=== PATIENT | male | born 1980 | race Caucasian/White ===

== ENCOUNTER 2018-04-26 00:44 | Emergency (ER) | payer OTHER ==
--- NOTE | 2018-04-26 00:48 | ER Report ---
History and Physical Time Seen By MD: 00:47 HPI/ROS CHIEF COMPLAINT: Tachycardia, dizziness HISTORY OF PRESENT ILLNESS: 37 year-old male presents ambulatory to the ER complaining of difficulty breathing, dizziness and chest tightness. He notes sudden onset several hours ago. She denies recent illness. Patient denies leg swelling or calf pain. Patient had a near syncopal episode with exertion today. He notes no chest pain. He notes mild shortness of breath. He does note some chest tightness, though REVIEW OF SYSTEMS: Respiratory: As above Cardiovascular: As above Gastrointestinal: No vomiting, no abdominal pain. Musculoskeletal: No back pain. Allergies: Coded Allergies: No Known Drug Allergies (Unverified , 04/26/18) Home Meds No Active Prescriptions or Reported Meds Reviewed Nurses Notes: Yes Old Medical Records Reviewed: Yes Constitutional Vital Sign - Last 24 Hours 04/26/18 04/26/18 04/26/18 04/26/18 00:51 01:05 01:15 01:20 Temp 98.1 Pulse 147 70 87 Resp 17 8 6 B/P (MAP) 138/100 146/110 (122) 131/97 (108) Pulse Ox 88 91 91 O2 Delivery Room Air 04/26/18 04/26/18 04/26/18 04/26/18 01:30 01:35 01:50 02:00 Pulse 102 111 Resp 26 B/P (MAP) 152/107 (122) 145/101 (116) Pulse Ox 95 04/26/18 04/26/18 04/26/18 04/26/18 02:05 02:15 02:20 02:50 Pulse 106 110 109 Resp 20 20 11 B/P (MAP) 155/107 (123) Pulse Ox 88 92 99 04/26/18 04/26/18 04/26/18 04/26/18 02:52 02:55 02:56 03:00 Pulse 94 92 Resp 19 13 B/P (MAP) 137/70 (92) 137/90 (106) 133/72 (92) Pulse Ox 96 94 04/26/18 04/26/18 04/26/18 03:05 03:10 03:49 Pulse 92 86 85 Resp 17 22 16 B/P (MAP) 132/85 (101) Pulse Ox 94 95 95 O2 Delivery Room Air Physical Exam General Appearance: The patient is alert, has no immediate need for airway protection and no current signs of toxicity. Tachycardia, rate 147 HEENT: Pupils equal and round no injection. Oropharynx without redness or exudate, mucous members are moist Respiratory: Chest is non tender, lungs are clear to auscultation. Cardiac: Irregular rate and rhythm, no murmur Gastrointestinal: Abdomen is soft and non tender, no masses, bowel sounds normal. Musculoskeletal: Neck: Neck is supple and non tender. No JVD Extremities have full range of motion and are non tender. No edema, no calf tenderness Skin: No rashes or lesions. DIFFERENTIAL DIAGNOSIS: After history and physical exam differential diagnosis was considered for chest pain including but not limited to myocardial ischemia, pericarditis pulmonary embolus, chest wall pain, pleural inflammation, dysrhythmia, and pulmonary infectious causes. Medical Decision Making Data Points Result Diagram: 04/26/1810804/26/18108 Laboratory Hematology Test 04/26/18 01:09 Red Blood Count 5.60 M/uL (4.00-5.60) Mean Corpuscular Volume 87.7 fL (80.0-96.0) Mean Corpuscular Hemoglobin 30.8 pg (26.0-33.0) Mean Corpuscular Hemoglobin Concent 35.1 g/dL (32.0-36.0) Red Cell Distribution Width 13.8 % (11.5-14.5) Mean Platelet Volume 8.7 fL (7.2-11.1) Neutrophils (%) (Auto) 71.8 % (39.4-72.5) Lymphocytes (%) (Auto) 19.5 % (17.6-49.6) Monocytes (%) (Auto) 6.3 % (4.1-12.4) Eosinophils (%) (Auto) 1.5 % (0.4-6.7) Basophils (%) (Auto) 0.9 % (0.3-1.4) Nucleated RBC Relative Count (auto) 0.1 /100WBC Neutrophils # (Auto) 6.7 K/uL (2.0-7.4) Lymphocytes # (Auto) 1.8 K/uL (1.3-3.6) Monocytes # (Auto) 0.6 K/uL (0.3-1.0) Eosinophils # (Auto) 0.1 K/uL (0.0-0.5) Basophils # (Auto) 0.1 K/uL (0.0-0.1) Nucleated RBC Absolute Count (auto) 0.01 K/uL Sodium Level 144 mmol/L (137-145) Potassium Level 4.2 mmol/L (3.5-5.0) Chloride Level 101 mmol/L (98-107) Carbon Dioxide Level 29 mmol/L (22-30) Blood Urea Nitrogen 11 mg/dl (9-21) Creatinine 0.90 mg/dl (0.66-1.25) Glomerular Filtration Rate Calc > 60.0 Random Glucose 98 mg/dl (75-110) Calcium Level 9.5 mg/dl (8.4-10.2) Total Bilirubin 0.6 mg/dl (0.2-1.3) Aspartate Amino Transf (AST/SGOT) 23 U/L (0-35) Alanine Aminotransferase (ALT/SGPT) 33 U/L (0-56) Alkaline Phosphatase 54 U/L (0-126) Troponin I 0.014 ng/ml Total Protein 8.1 g/dl (6.3-8.2) Albumin 4.9 g/dl (3.5-5.0) Chemistry Test 04/26/18 01:09 White Blood Count 9.4 k/uL (4.5-11.0) Red Blood Count 5.60 M/uL (4.00-5.60) Hemoglobin 17.2 g/dL (14.0-18.0) Hematocrit 49.1 % (42.0-52.0) Mean Corpuscular Volume 87.7 fL (80.0-96.0) Mean Corpuscular Hemoglobin 30.8 pg (26.0-33.0) Mean Corpuscular Hemoglobin Concent 35.1 g/dL (32.0-36.0) Red Cell Distribution Width 13.8 % (11.5-14.5) Platelet Count 287 K/uL (150-450) Mean Platelet Volume 8.7 fL (7.2-11.1) Neutrophils (%) (Auto) 71.8 % (39.4-72.5) Lymphocytes (%) (Auto) 19.5 % (17.6-49.6) Monocytes (%) (Auto) 6.3 % (4.1-12.4) Eosinophils (%) (Auto) 1.5 % (0.4-6.7) Basophils (%) (Auto) 0.9 % (0.3-1.4) Nucleated RBC Relative Count (auto) 0.1 /100WBC Neutrophils # (Auto) 6.7 K/uL (2.0-7.4) Lymphocytes # (Auto) 1.8 K/uL (1.3-3.6) Monocytes # (Auto) 0.6 K/uL (0.3-1.0) Eosinophils # (Auto) 0.1 K/uL (0.0-0.5) Basophils # (Auto) 0.1 K/uL (0.0-0.1) Nucleated RBC Absolute Count (auto) 0.01 K/uL Glomerular Filtration Rate Calc > 60.0 Calcium Level 9.5 mg/dl (8.4-10.2) Total Bilirubin 0.6 mg/dl (0.2-1.3) Aspartate Amino Transf (AST/SGOT) 23 U/L (0-35) Alanine Aminotransferase (ALT/SGPT) 33 U/L (0-56) Alkaline Phosphatase 54 U/L (0-126) Troponin I 0.014 ng/ml Total Protein 8.1 g/dl (6.3-8.2) Albumin 4.9 g/dl (3.5-5.0) EKG/Imaging EKG Interpretation 12 lead EK Rhythm: Atrial fibrillation rate 147 bpm [place]: normal QRS: normal ST segments: normal, no evidence of ischemia or dysrhythmia 12 lead EK Rhythm: normal sinus rhythm [place]: normal QRS: normal ST segments: normal, no evidence of ischemia or dysrhythmia ED Course/Re-evaluation Clinical Indication for ER IV: Hydration, IV Access ED Course Patient was admitted to an examination room. H&P was done. The dental diagnoses was considered. Patient's diagnostic EKG shows rapid narrow complex tachycardia consistent with atrial fibrillation. Peripheral IV was established. Patient's rate was controlled with diltiazem 20 g IV. Patient continued to remain in A. fib. He's only been within a few hours. I discussed the option of elective electrocardioversion. Patient understands the risks and benefits and agrees to proceed. Procedure: Procedural sedation. A pre-sedation evaluation was completed on the patient. Patient is an appropriate candidate for elective electrocardioversion. The risks of the sedation were discussed with the patient. A time out was completed. The patient was reevaluated immediately prior to initiation of sedation. The patient was sedated with propofol 150 mg IV. The patient was monitored with continuous pulse oximetry and tower climber. There were no complications and no significant hypoxemia. I remained at the bedside for the sedation. The total time I spent in the procedural sedation was 20 minutes. Post sedation eval uation: Patient was alert and cooperative, hemodynamically stable with appropriate respiratory status, temperature and pain control without ongoing nausea and vomiting. Procedure: Elective electrical cardioversion. The patient was electively electrically cardioverted for atrial flutter. The pa tient was on a continuous integration assistant, with airway equipment at the bedside. The patient was on continuous pulse oximetry. The cardioversion was attempted with 50 joules biphasic current. The cardioversion was successful. The patient tolerated the procedure well with no complications. The procedure was performed by myself. Decision to Disposition Date: Apr 26, 2018 Decision to Disposition Time: 03:05 Depart Departure Latest Vital Signs Vital Signs Date Time Temp Pulse Resp B/P (MAP) Pulse Ox O2 Delivery O2 Flow Rate FiO2 04/26/18 03:49 85 16 132/85 (101) 95 Room Air 04/26/18 00:51 98.1 Impression: Primary Impression: New onset atrial fibrillation Additional Impression: Atrial fibrillation status post cardioversion Condition: Improved Disposition: HOME OR SELF-CARE New Scripts No Active Prescriptions or Reported Meds Patient Instructions: A-fib (Atrial Fibrillation) (ED) Additional Instructions: Follow-up with cardiology next week. [email or web address] [address], [place] Problem Qualifiers JOSH MOJICA DO Apr 26, 2018 00:48
[2018-04-26] MEDS ORDERED: ASPIRIN 81 MG CHEW PO ONE (01:00)
[2018-04-26] MEDS ORDERED: ADENOSINE(*)IV SOLN 3MG/ML IVP ONE (01:00)
[2018-04-26] MEDS ORDERED: DILTIAZEM 5 MG/ML 5ML IVPUSH IVP ONE (01:05)
[2018-04-26] MEDS ORDERED: NS(*) 0.9% 1000 ML BAG 1,000 ML IV ONE (01:05)
--- NOTE | 2018-04-26 01:20 | EKG ---
FACILITY: [facility] [place] PATIENT NAME: CESAR BUCHANAN : [id number] MR: [id number] V: [id number] EXAM DATE: ORDERING PHYSICIAN: JOSH MOJICA TECHNOLOGIST: KILLIAN Claire Reason : Blood Pressure : / mmHG Vent. Rate : 147 BPM Atrial Rate : 147 BPM P-R Int : 000 ms QRS Dur : 082 ms QT Int : 268 ms P-R-T Axes : 000 053 015 degrees QTc Int : 419 ms Atrial fibrillation with rapid ventricular response Abnormal ECG No previous ECGs available Confirmed by PIO REES ([id number]) on 04/26/2018 6:28:56 AM Referred By: Confirmed By:PIO REES
[2018-04-26 01:25] LABS: PLATELET COUNT, AUTOMATED 287 K/uL (150-450)
[2018-04-26] MEDS ORDERED: PROPOFOL EMUL 10MG/ML 20 ML VL IV ONE (02:05)
--- NOTE | 2018-04-26 03:27 | EKG ---
FACILITY: [facility] PATIENT NAME: CESAR BUCHANAN : [id number] MR: [id number] V: [id number] EXAM DATE: ORDERING PHYSICIAN: JOSH MOJICA TECHNOLOGIST: KILLIAN Claire Reason : Blood Pressure : / mmHG Vent. Rate : 092 BPM Atrial Rate : 092 BPM P-R Int : 162 ms QRS Dur : 082 ms QT Int : 336 ms P-R-T Axes : 041 033 020 degrees QTc Int : 415 ms Normal sinus rhythm Normal ECG When compared with ECG of 26-APR-2018 00:59, Sinus rhythm has replaced Atrial fibrillation Vent. rate has decreased BY 55 BPM Confirmed by PIO REES ([id number]) on 04/26/2018 6:29:13 AM Referred By: Confirmed By:PIO REES
[2018-04-26 03:49] VITALS: BP 132/85
== END 2018-04-26 04:18 | disposition home or self-care (01) ==
LOC: ER 00:52
DX: I48.91 Unspecified atrial fibrillation (principal)
CPT/HCPCS: 84484; 85025; 92960; 93005; 96361; 96374; 99152; 99285; J2704; J3490; J7030; 82040; 82247; 82310; 82374; 82435; 82565; 82947; 84075; 84132; 84155; 84295; 84450; 84460; 84520